=== PATIENT | male | born 1970 | race Caucasian/White ===

== ENCOUNTER → 2023-03-14 15:15 | Outpatient (BNVA) | payer BC, SELFPAY | PROVIDERS: Visit Provider Family Medicine | DX: E03.9 Hypothyroidism, unspecified (principal); R30.0 Dysuria | CPT/HCPCS: 80053; 80061; 84153; 84403; 84439; 84443; 85025 ==

== ENCOUNTER 2023-05-30 05:55 | Day surgery (SDC) | payer BC, SELFPAY ==
--- NOTE | 2023-05-30 05:52 | W.PM.OPSFHP ---
Same Day Surgery H&P Indication for Procedure/HPI DATE OF PROCEDURE: May 30, 2023 CHIEF COMPLAINT/INDICATIONFOR SURGICAL PROCEDURE: need for screening colonoscopy PREOP DIAGNOSIS: need for screening colonoscopy PLANNED PROCEDURE: Operation Date: 05/30/23 07:00 Proposed Procedures p Colonoscopy 18936,Z12.11(Not Applicable) - Aureliano Chaudhry MD Medications/Allergies* Allergies/Adverse Reactions Allergy/AdvReac Type Severity Reaction Status Date / Time No Known Allergies Allergy Verified 05/28/23 13:03 Pertinent History/Comorbid Conditions* Medical History (Updated 03/14/23 @ 14:56 by Aureliano No MD) Hypothyroidism Surgical History (Updated 03/14/23 @ 14:35 by Aureliano No MD) History of tonsillectomy and adenoidectomy Family History (Updated 03/14/23 @ 14:22 by Tahira Blue LPN) Dementia Cancer Grandfather Paternal-colon Family/Other Maternal uncle-prostate Family/Other Maternal aunt-colon Hypertension Denies family history of Diabetes CAD (coronary artery disease) Clotting disorder Hyperlipidemia Psychiatric illness Chronic kidney disease (CKD) Anesthesia complication Bleeding disorder Lung disease Stroke Social History Smoking and tobacco/nicotine status: never used tobacco/nicotine Alcohol intake: never Substance/Drug Use: never Lives independently: Yes Marital status: Number of children: 2 Current occupational status: employed 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
[2023-05-30 06:05] VITALS: BP 115/68; PULSE 73; RESP 18; TEMP 36.1; O2SAT 98; BMI 28.2
[2023-05-30] MEDS: sodium chloride 0.9% 1,000 ML 30 ML IV (06:16)
--- NOTE | 2023-05-30 06:59 | ANES.PREANE2 ---
Pre-Anesthetic Assessment Height/Weight: Height 1.88 m Weight 99.79 kg Temp Pulse Resp BP Pulse Ox O2 Del Method 97.0 F L 73 18 115/68 98 Room Air 05/30/23 06:05 05/30/23 06:05 05/30/23 06:05 05/30/23 06:05 05/30/23 06:05 05/30/23 06:05 Preop Diagnosis: need for screening colonoscopy Operation Date: 05/30/23 07:00 Proposed Procedures p Colonoscopy 73905,Z12.11(Not Applicable) - Aureliano Chaudhry MD Familial anesthetic complications: none Was Beta Jaky taken within 24 hours: N/A Was Clonidine taken within 24 hours: N/A Last intake: Intake Last Liquid Date 05/29/23 Last Liquid Time 23:00 Last Solid Date 05/28/23 Last Intake: 23:00 Social No alcohol and No tobacco Exam alert and oriented x 3 Airway Submandibular: within normal limits Cervical ROM: within normal limits Mallampati: Class II History/ROS No significant history except as noted Metabolic Thyroid Disease Anesthetic Plan ASA status: 2 Anesthesia: Anesthesia Evaluation, General and MAC Medications/Allergies Home Medications Medication Instructions Recorded Confirmed Last Taken Type levothyroxine 137 mcg capsule 137 mcg PO DAILY #90 caps 03/16/23 05/30/23 05/29/23 Rx Allergies Allergy/AdvReac Type Severity Reaction Status Date / Time No Known Allergies Allergy Verified 05/30/23 06:03 Current Medications Generic Name Dose Route Start Last Admin Trade Name Freq PRN Reason Stop Dose Admin Sodium Chloride 1,000 mls @ 30 mls/hr 05/30/23 06:15 05/30/23 06:16 Sodium Chloride 0.9% IV 30 mls/hr .Q24H BELÉN Administration PFSH Anesthesia Medical History Hypothyroidism Surgical History History of tonsillectomy and adenoidectomy Family History Grandfather Cancer Paternal-colon Family/Other Cancer Maternal uncle-prostate Family/Other Cancer Maternal aunt-colon Other Dementia Hypertension Denies family history of Diabetes CAD (coronary artery disease) Clotting disorder Hyperlipidemia Psychiatric illness Chronic kidney disease (CKD) Anesthesia complication Bleeding disorder Lung disease Stroke Social History Smoking and tobacco/nicotine status: never used tobacco/nicotine Alcohol intake: never Substance/Drug Use: never Lives independently: Yes Marital status: Number of children: 2 Current occupational status: 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
[2023-05-30 07:35] VITALS: BP 100/61; PULSE 63; RESP 16; TEMP 36.1; O2SAT 97
--- NOTE | 2023-05-30 07:38 | ANE.PACU2 ---
Inpatient post-anesthesia follow up: Airway intact: Yes Vital signs: Temperature 97.0 F Pulse Rate 63 Respiratory Rate 16 Blood Pressure 100/61 Pulse Oximetry 97 Oxygen Delivery Me thod Room Air Oxygen Flow Rate Fraction of Inspir ed Oxygen Hydration adequate: Yes Nausea and vomiting: No Pain level: 1 Mental status: Baseline
[2023-05-30 07:50] VITALS: BP 108/71; PULSE 61; RESP 16; O2SAT 97
== END 2023-05-30 08:20 | disposition home or self-care (01) ==
PROVIDERS: PCP Family Medicine; Visit Provider Surgery
PROC: 0DJD8ZZ Inspection of Lower Intestinal Tract, Via Natural or Artificial Opening Endoscopic (ICD-10-PCS; CPT 45378; principal; 2023-05-30 07:00)
DX: Z12.11 Encounter for screening for malignant neoplasm of colon (principal); D12.2 Benign neoplasm of ascending colon; D12.4 Benign neoplasm of descending colon; D12.5 Benign neoplasm of sigmoid colon; E03.9 Hypothyroidism, unspecified
CPT/HCPCS: 45381; 45385; 88305; J2704; J7030

== ENCOUNTER → 2024-06-17 13:58 | Outpatient (BNVA) | payer BC, SELFPAY | PROVIDERS: PCP Family Medicine; Visit Provider Family Medicine | DX: E03.9 Hypothyroidism, unspecified (principal) | CPT/HCPCS: 80053; 80061; 84439; 84443 ==

== ENCOUNTER → 2025-06-23 13:15 | Outpatient (BNVA) | payer BC, SELFPAY | PROVIDERS: PCP Family Medicine; Visit Provider Family Medicine | DX: Z11.1 Encounter for screening for respiratory tuberculosis (principal) | CPT/HCPCS: 86480 ==

== ENCOUNTER 2025-07-13 16:08 | Outpatient (CLI) | payer OTHER, SELFPAY ==
[2025-07-13 16:43] LABS: Hematocrit 46.0 % (37-53); Hemoglobin 15.90 g/dL (11.27-16.99); Mean Corpuscular HGB Conc 34.6 g/dL (30-55); Mean Corpuscular Hemoglobin 29.3 pg (27-33); Mean Corpuscular Volume 84.7 fl (82-101); Nucleated Red Blood Cells % 0 %; Platelet Count 313 10^3/cmm (157-399); Red Blood Count 5.43 10^6/uL (3.85-5.65); White Blood Count 11.35 10^3/uL (3.29-11.43)
[2025-07-13 17:15] LABS: Alanine Aminotransferase 16 U/L (0-41); Albumin Level 4.7 g/dL (3.5-5.2); Alkaline Phosphatase 78 U/L (40-130); Anion Gap 19.1 (5-19); Aspartate Amino Transferase 16 U/L (0-40); Blood Urea Nitrogen 10 mg/dL (6-20); Calcium 9.4 mg/dL (8.5-10.5); Carbon Dioxide 22 mmol/L (22-29); Chloride 103 mmol/L (98-107); Cholesterol 119 mg/dL (0-200); Globulin 2.9 g/dL (1.3-4.6); Glucose 91 mg/dL (65-115); HDL Cholesterol 55 mg/dL (60-100); Osmolality Calculated 289 mOsm/kg (285-295); Potassium 4.1 mmol/L (3.5-5.1); Sodium 140 mmol/L (136-145); Thyroid Stimulating Hormone 3.50 uIU/mL (0.27-4.20); Total Protein 7.6 g/dL (6.6-8.7); Triglycerides 94 mg/dL (0-150)
[2025-07-13 21:34] LABS: Free T4 Free Thyroxine 1.37 ng/dL (0.82-1.77)
== END 2025-07-13 16:09 | disposition home or self-care (01) ==
PROVIDERS: Nurse Practitioner; PCP Family Medicine; Visit Provider Family Medicine
DX: Z13.6 Encounter for screening for cardiovascular disorders (principal); Z11.1 Encounter for screening for respiratory tuberculosis
CPT/HCPCS: 36415; 80053; 80061; 84439; 84443; 85025; 86480